=== PATIENT | female | born 1970 | race Caucasian/White ===

== ENCOUNTER 2018-05-06 00:40 | Emergency (ER) | payer OTHER ==
[2018-05-06 01:16] LABS: ADD MAN DIFF? NO
[2018-05-06 01:23] LABS: BASOPHILS % 0.4 % (0.0-2.0); EOSINOPHILS # 0.1 10^3/ul (0.0-0.5); EOSINOPHILS % 1.3 % (0.0-7.0); HEMOGLOBIN 10.9 g/dl (12.0-16.0); LYMPHOCYTES # 0.9 10^3/ul (0.8-2.9); LYMPHOCYTES % 9.8 % (15.0-51.0); MEAN CORPUSCULAR HEMOGLOBIN 23.6 pg (29.0-33.0); MEAN CORPUSCULAR HGB CONC 31.1 g/dl (32.0-37.0); MEAN CORPUSCULAR VOLUME 75.8 fl (82.0-101.0); MEAN PLATELET VOLUME 10.1 fl (7.4-10.4); MONOCYTE # 0.5 10^3/ul (0.3-0.9); MONOCYTES % 5.3 % (0.0-11.0); NEUTROPHIL # 7.8 10^3/ul (1.6-7.5); NEUTROPHILS % 82.9 % (39.0-77.0); PLATELET COUNT 260 10^3/UL (140-415); RED BLOOD COUNT 4.62 10^6/ul (4.20-5.40)
[2018-05-06 01:23] LABS: WHITE BLOOD COUNT 9.4 10^3/ul (4.8-10.8)
[2018-05-06 01:35] LABS: ALANINE AMINOTRANSFERASE 26 IU/L (13-69); ALBUMIN 3.5 g/dl (3.3-4.9); ALBUMIN/GLOBULIN RATIO 1.06; ALKALINE PHOSPHATASE 61 IU/L (42-121); ANION GAP 10 (8-16); ASPARTATE AMINO TRANSFERASE 14 IU/L (15-46); BILIRUBIN,INDIRECT 0.2 mg/dl (0-1.1); BILIRUBIN,TOTAL 0.2 mg/dl (0.2-1.3); BLOOD UREA NITROGEN 12 mg/dl (7-20); CALCIUM 8.8 mg/dl (8.4-10.2); CARBON DIOXIDE 24 mmol/L (21-31); CHLORIDE 107 mmol/L (97-110); CREATININE 0.78 mg/dl (0.44-1.00); GLUCOSE 160 mg/dl (70-220); POTASSIUM 3.4 mmol/L (3.5-5.1); SODIUM 138 mmol/L (135-144); TOTAL PROTEIN 6.8 g/dl (6.1-8.1)
[2018-05-06 01:46] LABS: B-TYPE NATRIURETIC PEPTIDE 1840 PG/ML (0-125)
[2018-05-06 01:47] LABS: TROPONIN-I < 0.010 ng/ml (0.000-0.120)
[2018-05-06] MEDS: ONDANSETRON 4 MG INJ IV (01:54)
[2018-05-06] MEDS: HYDROmorphONE 0.5 MG/0.5 ML SYG IV ×2 (01:54→05:41)
[2018-05-06 06:18] LABS: ADD UMIC YES; UR AMORPHOUS CRYSTAL MODERATE /HPF (NONE SEEN); UR ASCORBIC ACID NEGATIVE (NEGATIVE); UR BILIRUBIN (Dip) NEGATIVE (NEGATIVE); UR BLOOD (Dip) NEGATIVE (NEGATIVE); UR CLARITY TURBID (CLEAR); UR COLOR YELLOW (YELLOW); UR GLUCOSE (Dip) NEGATIVE (NEGATIVE); UR KETONES (Dip) NEGATIVE (NEGATIVE); UR LEUKOCYTE ESTERASE (Dip) 1+ Leu/ul (NEGATIVE); UR NITRITE (Dip) NEGATIVE (NEGATIVE); UR RBC 3 /HPF (0-5); UR SPECIFIC GRAVITY (Dip) 1.013 (1.003-1.030); UR SQUAMOUS EPITHELIAL CELL FEW /HPF (FEW); UR TOTAL PROTEIN (Dip) NEGATIVE (NEGATIVE); UR UROBILINOGEN (Dip) NEGATIVE (NEGATIVE); UR WBC 30 /HPF (0-5)
[2018-05-06] MEDS: HYDROCODONE/APAP (10/325) TAB PO (09:19)
[2018-05-06] MEDS ORDERED: ACETAMINOPHEN 325 MG TAB PO (11:30)
[2018-05-06] MEDS ORDERED: ALPRAZOLAM 1 MG TAB PO (11:30)
[2018-05-06] MEDS ORDERED: LOSARTAN 50 MG TAB PO (11:30)
[2018-05-06] MEDS ORDERED: SERTRALINE 50 MG TAB PO (11:30)
[2018-05-06] MEDS ORDERED: HYDROmorphONE 2 MG TAB PO (11:30)
[2018-05-06] MEDS ORDERED: FUROSEMIDE 40 MG INJ IV (11:30)
[2018-05-06] MEDS ORDERED: NACL 0.9% 3 ML SYG IV (11:30)
[2018-05-06] MEDS ORDERED: ENOXAPARIN 40 MG/0.4 ML SYG SC (11:30)
[2018-05-06] MEDS ORDERED: KETOROLAC 15 MG INJ IV (11:30)
[2018-05-06 12:22] LABS: AMPHETAMINE/METHAMPHETAMINE POSITIVE (NEGATIVE); BARBITURATES NEGATIVE (NEGATIVE); BENZODIAZEPINES NEGATIVE (NEGATIVE); CANNABINOIDS NEGATIVE (NEGATIVE); COCAINE NEGATIVE (NEGATIVE); OPIATES NEGATIVE (NEGATIVE)
[2018-05-06] MEDS ORDERED: GABAPENTIN 300 MG CAP PO (13:00)
[2018-05-06] MEDS ORDERED: FUROSEMIDE 20 MG TAB PO (21:00)
[2018-05-06] MEDS ORDERED: FERROUS SULFATE (EC) 325 MG TAB PO (21:00)
[2018-05-07] MEDS ORDERED: ASPIRIN 81 MG TAB PO (09:00)
== END 2018-05-06 12:22 | disposition left against medical advice (07) ==
LOC: E/R 00:40
DX: R07.9 Chest pain, unspecified (principal); R40.2252 Coma scale, best verbal response, oriented, at arrival to emergency department; I10 Essential (primary) hypertension; R40.2142 Coma scale, eyes open, spontaneous, at arrival to emergency department; R40.2362 Coma scale, best motor response, obeys commands, at arrival to emergency department
CPT/HCPCS: 36415; 71045; 80053; 80307; 81001; 83880; 84484; 85025; 93005; 96374; 96375; 96376; 99285-25

== ENCOUNTER 2019-07-07 19:56 | Emergency (ER) | payer OTHER ==
[2019-07-07 20:47] LABS: ADD MAN DIFF? NO
[2019-07-07 20:49] LABS: WHITE BLOOD COUNT 8.4 10^3/ul (4.8-10.8)
[2019-07-07 20:49] LABS: ABNORMAL IP MESSAGE 1; BASOPHIL # 0.1 10^3/ul (0.0-0.1); BASOPHILS % 0.6 % (0.0-2.0); EOSINOPHILS # 0.3 10^3/ul (0.0-0.5); EOSINOPHILS % 3.5 % (0.0-7.0); HEMATOCRIT 41.9 % (37.0-47.0); HEMOGLOBIN 11.9 g/dl (12.0-16.0); LYMPHOCYTES # 1.9 10^3/ul (0.8-2.9); LYMPHOCYTES % 22.6 % (15.0-51.0); MEAN CORPUSCULAR HEMOGLOBIN 20.6 pg (29.0-33.0); MEAN CORPUSCULAR HGB CONC 28.4 g/dl (32.0-37.0); MEAN CORPUSCULAR VOLUME 72.6 fl (82.0-101.0); MEAN PLATELET VOLUME 9.2 fl (7.4-10.4); MONOCYTE # 0.6 10^3/ul (0.3-0.9); MONOCYTES % 6.8 % (0.0-11.0); NEUTROPHIL # 5.6 10^3/ul (1.6-7.5); NEUTROPHILS % 66.3 % (39.0-77.0); PLATELET COUNT 328 10^3/UL (140-415); RED BLOOD COUNT 5.77 10^6/ul (4.20-5.40); RED CELL DISTRIBUTION WIDTH 16.3 % (11.5-14.5)
[2019-07-07] MEDS: ASPIRIN 325 MG TAB PO (20:50)
[2019-07-07] MEDS: ONDANSETRON 4 MG INJ IV (20:50)
[2019-07-07] MEDS: NITROGLYCERIN 2% 1 GM OINT PKT TD (20:50)
[2019-07-07 20:56] LABS: POSITIVE DIFF @See below
[2019-07-07 21:08] LABS: ANION GAP 10 (5-13); BLOOD UREA NITROGEN 16 mg/dl (7-20); CALCIUM 9.7 mg/dl (8.4-10.2); CARBON DIOXIDE 28 mmol/L (21-31); CHLORIDE 104 mmol/L (97-110); CREATININE 1.12 mg/dl (0.44-1.00); Estimated GFR 52 mL/min (>60); GLUCOSE 101 mg/dl (70-220); POTASSIUM 3.5 mmol/L (3.5-5.1); SODIUM 142 mmol/L (135-144)
[2019-07-07 21:20] LABS: TROPONIN-I < 0.012 ng/ml (0.000-0.120)
[2019-07-07 21:50] LABS: B-TYPE NATRIURETIC PEPTIDE 2970 PG/ML (0-125)
[2019-07-07] MEDS: morphine 4 MG/ML VIAL IV (21:50)
[2019-07-07] MEDS: FUROSEMIDE 40 MG INJ IV (22:06)
[2019-07-07] MEDS ORDERED: ZOLPIDEM 5 MG TAB PO ×2 (23:00→23:45)
[2019-07-07] MEDS ORDERED: ACETAMINOPHEN 325 MG TAB PO (23:00)
[2019-07-07] MEDS ORDERED: ONDANSETRON (ODT) 4 MG TAB ODT (23:00)
[2019-07-07] MEDS: ACETAMINOPHEN 325 MG TAB PO (23:29)
[2019-07-08 01:31] LABS: TROPONIN-I 0.016 ng/ml (0.000-0.120)
[2019-07-08] MEDS: hydrALAzine 20 MG INJ IV (01:57)
[2019-07-08] MEDS: morphine 2 MG INJ IV (02:02)
[2019-07-08 02:53] LABS: CREATINE KINASE 63 IU/L (23-200)
[2019-07-08 03:06] LABS: CK INDEX 1.7; CK-MB 1.07 ng/ml (0.0-2.4); TROPONIN-I < 0.012 ng/ml (0.000-0.120)
[2019-07-08] MEDS: ONDANSETRON 4 MG INJ IV ×2 (03:43→08:09)
[2019-07-08 07:21] LABS: ADD MAN DIFF? NO
[2019-07-08 07:24] LABS: ABNORMAL IP MESSAGE 1; BASOPHIL # 0.1 10^3/ul (0.0-0.1); BASOPHILS % 0.5 % (0.0-2.0); EOSINOPHILS # 0.2 10^3/ul (0.0-0.5); EOSINOPHILS % 2.1 % (0.0-7.0); HEMATOCRIT 39.2 % (37.0-47.0); HEMOGLOBIN 11.3 g/dl (12.0-16.0); LYMPHOCYTES % 9.7 % (15.0-51.0); MEAN CORPUSCULAR HEMOGLOBIN 20.8 pg (29.0-33.0); MEAN CORPUSCULAR HGB CONC 28.8 g/dl (32.0-37.0); MEAN CORPUSCULAR VOLUME 72.1 fl (82.0-101.0); MEAN PLATELET VOLUME 9.3 fl (7.4-10.4); MONOCYTE # 0.6 10^3/ul (0.3-0.9); NEUTROPHIL # 8.5 10^3/ul (1.6-7.5); NEUTROPHILS % 81.4 % (39.0-77.0); PLATELET COUNT 288 10^3/UL (140-415); RED BLOOD COUNT 5.44 10^6/ul (4.20-5.40); RED CELL DISTRIBUTION WIDTH 16.3 % (11.5-14.5)
[2019-07-08 07:24] LABS: WHITE BLOOD COUNT 10.5 10^3/ul (4.8-10.8)
[2019-07-08 07:40] LABS: POSITIVE DIFF @See below
[2019-07-08 07:45] LABS: ALANINE AMINOTRANSFERASE 14 IU/L (13-69); ALBUMIN 4.1 g/dl (3.3-4.9); ALKALINE PHOSPHATASE 62 IU/L (42-121); ANION GAP 10 (5-13); ASPARTATE AMINO TRANSFERASE 19 IU/L (15-46); BILIRUBIN,INDIRECT 0.4 mg/dl (0-1.1); BILIRUBIN,TOTAL 0.4 mg/dl (0.2-1.3); BLOOD UREA NITROGEN 18 mg/dl (7-20); CALCIUM 8.9 mg/dl (8.4-10.2); CARBON DIOXIDE 27 mmol/L (21-31); CHLORIDE 104 mmol/L (97-110); CHOLESTEROL 160 mg/dl (100-200); Estimated GFR 48 mL/min (>60); GLUCOSE 122 mg/dl (70-220); HDL CHOLESTEROL 32 mg/dl (34-88); LDL CHOLESTEROL,CALCULATED 111 mg/dl; POTASSIUM 3.5 mmol/L (3.5-5.1); SODIUM 141 mmol/L (135-144); TOTAL PROTEIN 7.9 g/dl (6.1-8.1); TRIGLYCERIDES 84 mg/dl (0-149)
[2019-07-08 07:53] LABS: B-TYPE NATRIURETIC PEPTIDE 2880 PG/ML (0-125)
[2019-07-08 07:55] LABS: TROPONIN-I < 0.012 ng/ml (0.000-0.120)
[2019-07-08] MEDS: [UNRECOGNIZED DRUG - REMARK] XX (08:30)
[2019-07-08] MEDS ORDERED: LOSARTAN 50 MG TAB PO (09:00)
[2019-07-08] MEDS ORDERED: NON-FORMULARY/PATIENT OWN MED (Alprazolam* (Alprazolam* ER) 2 MG) PO (09:00)
[2019-07-08] MEDS ORDERED: GABAPENTIN 300 MG CAP PO (09:00)
[2019-07-08 10:22] LABS: CREATINE KINASE 46 IU/L (23-200)
[2019-07-08 10:30] LABS: CK INDEX 2.3; CK-MB 1.07 ng/ml (0.0-2.4); TROPONIN-I < 0.012 ng/ml (0.000-0.120)
[2019-07-08] MEDS: FUROSEMIDE 40 MG INJ IV (10:56)
[2019-07-08] MEDS: ASPIRIN (EC) 81 MG TAB PO (10:56)
[2019-07-08] MEDS ORDERED: ASPIRIN 325 MG TAB (11:01)
[2019-07-08] MEDS ORDERED: NON-FORMULARY/PATIENT OWN MED (Temazepam* 30 MG) PO (21:00)
[2019-07-08] MEDS ORDERED: OLMESARTAN MEDOXOMIL 40 MG PO (21:00)
== END 2019-07-08 11:30 | disposition left against medical advice (07) ==
LOC: E/R 07-08 11:30
DX: I50.9 Heart failure, unspecified (principal); I10 Essential (primary) hypertension; Z79.82 Long term (current) use of aspirin
CPT/HCPCS: 36415; 71045; 80048; 80061; 80076; 82550; 82553; 83880; 84484; 85025; 93005; 93306; 96374; 96375; 96376; 99285-25